=== PATIENT | female | born 1975 ===

== ENCOUNTER 2022-04-15 16:23 | Emergency (ER) | payer SELFPAY | END 2022-04-15 17:22 | disposition left against medical advice (07) | LOC: HO.ED 17:22 | PROVIDERS: Emergency Provider Emergency Medicine | DX: R07.89 Other chest pain (principal); R06.02 Shortness of breath; R05.9 Cough, unspecified ==

== ENCOUNTER 2024-08-17 11:48 | Emergency (ER) | payer MEDICAID, SELFPAY ==
--- NOTE | 2024-08-17 11:52 | ED_ITS ---
HPI - Alcohol General Chief Complaint: ETOH/Substance Use Stated Complaint: crisis Time Seen by Provider: 08/17/24 12:48 Related Data Previous Rx's ?Medication ?Instructions ?Recorded ibuprofen 600 mg tablet 600 mg PO Q6H PRN fever or pain 02/11/23 #30 tabs amoxicillin 875 mg-potassium 1 tab PO BID #10 tabs 06/17/23 clavulanate 125 mg tablet Allergies Allergy/AdvReac Type Severity Reaction Status Date / Time raines Allergy Sneezing Verified 08/17/24 11:54 mite-Dermatophagoides Allergy Sneezing Verified 08/17/24 11:54 farinae, jules [dust mite - [place]] [facility] Social History Social History (System 08/03/24 @ 15:15 by Anamika Norris) Household Members: None Housing: Homeless Do you presently have visiting nurse or other home services: No Alcohol intake: current Alcohol intake frequency: 3 or more drinks per day Alcohol type: beer, wine and hard liquor Patient Tobacco Use Status: Current everyday Tobacco user Tobacco use type: Cigarette Cigarettes Per Day: 3 Advance Directives: No Advance Directives Information Provided: Yes service: No Physical Exam ED Vital Signs: Vital Signs - 24 hr 08/17/24 11:53 08/17/24 18:00 Temperature 97.0 F Pulse Rate 100 75 Respiratory Rate 18 18 Blood Pressure 118/81 145/77 H Pulse Oximetry 96 95 Oxygen Delivery Method Room Air Room Air BMI result Body Mass Index 22.3 Course Course Course Narrative: This is a Rapid Medical Exam performed in triage by Johnna Miles PA-C. Full HPI, ROS and PE to be performed by primary ED provider. 49 yo F w/PMHx autism, ADHD, ETOH abuse, presenting to the ED c/o intoxication and requesting crisis. Denies SI/HI PE: intoxicated, ambulating with unsteady gait Plan: labs, tox, Recovery team consult Medical Decision Making Lab Data 08/17/24 14:45 08/17/24 14:45 Labs: Lab Results 08/17/24 08/17/24 Range/Units 12:59 14:45 WBC 12.9 H (4.8-10.8) X10*3/uL RBC 4.75 (4.20-5.50) X10*6/uL Hgb 14.7 (12.0-16.0) g/dl Hct 42.4 (37.0-47.0) % MCV 89.3 (80.0-98.0) fL MCH 30.9 (27.0-33.0) pg MCHC 34.7 (31.0-35.0) g/dl RDW 13.4 (11.0-16.0) % Plt Count 325 (160-400) X10*3/uL MPV 10.1 (9.4-12.3) fL Immature Gran % (Auto) 0.4 (0.0-0.4) % Neut % (Auto) 74.9 H (45-73) % Lymph % (Auto) 19.7 L (20-40) % [place] % (Auto) 3.3 (2-11) % Eos % (Auto) 1.2 (0-4) % Baso % (Auto) 0.5 (0-2) % Lymph # (Auto) 2.5 (1.2-4.9) X10*3/uL [place] # (Auto) 0.4 (0.1-1.2) X10*3/uL Eos # (Auto) 0.2 (0.0-0.4) X10*3/uL Baso # (Auto) 0.1 (0.0-0.2) X10*3/uL Abs Immat Gran (auto) 0.05 H (0.00-0.03) X10*3/uL Absolute Neuts (auto) 9.7 H (2.0-8.3) x10*3/uL Absolute Nucleated RBC 0.000 (0.0-0.012) X10*3/uL Nucleated RBC % (auto) 0.0 (0.0-0.2) /100WBC Sodium 143 (135-145) mmol/L Potassium 4.1 (3.3-5.1) mmol/L Chloride 111 H (96-108) mmol/L Carbon Dioxide 22 (22-29) mmol/L Anion Gap 14 (12-20) BUN 9 (9-16) mg/dL Creatinine 0.73 (0.5-1.4) mg/dL Estim Creat Clear Calc 77.1 Estimated GFR > 60 Random Glucose 73 (60-115) mg/dL Calcium 8.7 D (8.4-10.2) mg/dL Magnesium 2.4 (1.6-2.6) mg/dL Total Bilirubin 0.2 (0.0-1.0) mg/dL Direct Bilirubin < 0.2 (0.0-0.5) mg/dL AST 28 (5-31) U/L ALT 19 (0-31) U/L Alkaline Phosphatase 63 (39-117) U/L Total Protein 7.7 (6.5-8.0) g/dL Albumin 4.3 (3.5-5.0) g/dL Lipase 15 (8-78) U/L Urine Opiates Screen Not Detected (Not Detect) Ur Buprenorphine Scrn Not Detected (Not Detect) ng/mL Ur Oxycodone Screen Not Detected (Not Detect) ng/mL Urine Methadone Screen Not Detected (Not Detect) ng/mL Urine Fentanyl Screen Not Detected (Not Detect) Ur Barbiturates Screen Not Detected (Not Detect) Ur Phencyclidine Scrn Not Detected (Not Detect) Ur Amphetamines Screen Not Detected (Not Detect) U Benzodiazepines Scrn Not Detected (Not Detect) Urine Cocaine Screen Not Detected (Not Detect) U Marijuana (THC) Screen Not Detected (Not Detect) Ethyl Alcohol 286 mg/dL Influenza Type A (PCR) NEGATIVE (Negative) Influenza Type B (PCR) NEGATIVE (Negative) RSV RNA Qual (PCR) NEGATIVE (Negative) SARS-CoV-2 RNA (RT-PCR) NEGATIVE (Negative) Discharge Plan Discharge Clinical Impression: Alcoholic intoxication Patient Disposition: Home, Self-Care Instructions: Alcohol Intoxication (ED) Prescriptions: No Action ibuprofen 600 mg tablet 600 mg PO Q6H PRN (Reason: fever or pain) Qty: 30 0RF amoxicillin-pot clavulanate 875-125 mg tablet 1 tab PO BID Qty: 10 0RF Referrals: Marlin,Yamila, SAND SCREENER [Primary Care Provider] - ( please follow-up as per care team) Print Language: Armenian
[2024-08-17 11:53] VITALS: BP 118/81; PULSE 100; RESP 18; TEMP 36.1; O2SAT 96; BMI 22.3
[2024-08-17 13:17] LABS: Amphetamine Screen Urine Not Detected (Not Detect); Barbiturates, Urine Not Detected (Not Detect); Benzodiazepines Screen Urine Not Detected (Not Detect); Buprenorphine Scr Not Detected (Not Detect); Cannabinoid Screen Urine Not Detected (Not Detect); Cocaine Screen Urine Not Detected (Not Detect); Fentanyl, urine Not Detected (Not Detect); Methadone Screen, Urine Not Detected (Not Detect); Opiate Screen Urine Not Detected (Not Detect); Oxycodone Screen Urine Not Detected (Not Detect); Phencyclidine Screen Urine Not Detected (Not Detect)
--- NOTE | 2024-08-17 13:56 | PC.NURSE ---
Pt arrives to pod from waiting room. Crisis frame changer completed with senior principal software engineer and Security prior to Pts arrival. Upon arrival Pt reports that the preferred pronouns are he/him and demands to have his prosthetic penis returned to him. Pt advised that clearance will be received for safety reasons prior to returning the item and Pt immediately becomes belligerent. Pt uses aggressive and foul language, threatens to hurt staff, and slams both fists into glass divider on RN station. Pt is unable to be reasoned with and is unwilling to listen to staff members. Security, Clinical Coordinator Sonu of [place] arrive to unit to help diffuse the situation. Prosthetic penis inspected by this RN and Security. Item is made of soft, pliable material. No sharp areas or corners. Shobha speaks with Pt and able to deescalate Pt. Pt agreeable to correct behavior. Prosthetis penis returned to Pt. Pt proceeds to room 4 and is resting comfortably on bed. Will allow Pt to rest and when awake will continue to process Pt.
--- NOTE | 2024-08-17 14:42 | ED.ALCOHOL ---
HPI - Alcohol General Chief Complaint: ETOH/Substance Use Stated Complaint: crisis Time Seen by Provider: 08/17/24 12:48 History of Present Illness HPI narrative: patient is 49 years old preferred pronoun as he him presented today with having wanting to speak to a instructional coach and wanting to talk to care team. Has a long history of alcohol abuse. Patient denies any suicidal homicidal ideation. Related Data Previous Rx's ?Medication ?Instructions ?Recorded ibuprofen 600 mg tablet 600 mg PO Q6H PRN fever or pain 02/11/23 #30 tabs amoxicillin 875 mg-potassium 1 tab PO BID #10 tabs 06/17/23 clavulanate 125 mg tablet Allergies Allergy/AdvReac Type Severity Reaction Status Date / Time raines Allergy Sneezing Verified 08/17/24 11:54 mite-Dermatophagoides Allergy Sneezing Verified 08/17/24 11:54 jules matias [dust mite - [place]] Review of Systems Review of Systems: No fever no chills no chest pain or shortness breath Yes all other systems are reviewed and are negative [facility] Social History Social History (System 08/03/24 @ 15:15 by Anamika Norris) Household Members: None Housing: Homeless Do you presently have visiting nurse or other home services: No Alcohol intake: current Alcohol intake frequency: 3 or more drinks per day Alcohol type: beer, wine and hard liquor Patient Tobacco Use Status: Current everyday Tobacco user Tobacco use type: Cigarette Cigarettes Per Day: 3 Advance Directives: No Advance Directives Information Provided: Yes service: No Physical Exam ED Vital Signs: Vital Signs - 24 hr 08/17/24 11:53 08/17/24 18:00 Temperature 97.0 F Pulse Rate 100 75 Respiratory Rate 18 18 Blood Pressure 118/81 145/77 H Pulse Oximetry 96 95 Oxygen Delivery Method Room Air Room Air BMI result Body Mass Index 22.3 Appearance: Alert. Oriented X3. No acute distress. Eyes: Pupils equal, round and reactive to light. ENT: Pharynx normal. Neck: Normal inspection. Neck supple. No lymph nodes noted. No crepitus CVS: Normal heart rate and rhythm. Pulses normal. Normal S1 and S2 Respiratory: No respiratory distress. Breath sounds normal. No Wheezing. No rales Abdomen: Soft and nontender. No rigidity. No distention. good BS x4 Skin: Skin warm and dry. Normal skin color. Normal skin turgor. Extremities: No lower extremity edema. Neurovascular intact to all extremities. No Lacerations. No Rash Neuro: Oriented X 3. No motor deficit. No sensory deficit. Moving all extermities. No slurred speech. Cranial nerves grossly intact Medical Decision Making Medical Decision Making [facility] Narrative: Patient well-appearing not acute distress. Will get care team involved in helping patient recover. not suicidal not homicidal patient well-appearing now clinically sober at 21:00. care team to evaluate patient. Will discharge patient home afterwards. In stable condition. Differential Diagnosis Differential Diagnoses: The differential diagnosis associated with the presentation includes Polysubstance abuse Admission/Observation Consideration of admission/observation: Escalation of care including admission/observation considered Lab Data [facility] Lab Attestation statement: I reviewed the patient's lab results. 08/17/24 14:45 08/17/24 14:45 Labs: Lab Results 08/17/24 08/17/24 Range/Units 12:59 14:45 WBC 12.9 H (4.8-10.8) X10*3/uL RBC 4.75 (4.20-5.50) X10*6/uL Hgb 14.7 (12.0-16.0) g/dl Hct 42.4 (37.0-47.0) % MCV 89.3 (80.0-98.0) fL MCH 30.9 (27.0-33.0) pg MCHC 34.7 (31.0-35.0) g/dl RDW 13.4 (11.0-16.0) % Plt Count 325 (160-400) X10*3/uL MPV 10.1 (9.4-12.3) fL Immature Gran % (Auto) 0.4 (0.0-0.4) % Neut % (Auto) 74.9 H (45-73) % Lymph % (Auto) 19.7 L (20-40) % [place] % (Auto) 3.3 (2-11) % Eos % (Auto) 1.2 (0-4) % Baso % (Auto) 0.5 (0-2) % Lymph # (Auto) 2.5 (1.2-4.9) X10*3/uL [place] # (Auto) 0.4 (0.1-1.2) X10*3/uL Eos # (Auto) 0.2 (0.0-0.4) X10*3/uL Baso # (Auto) 0.1 (0.0-0.2) X10*3/uL Abs Immat Gran (auto) 0.05 H (0.00-0.03) X10*3/uL Absolute Neuts (auto) 9.7 H (2.0-8.3) x10*3/uL Absolute Nucleated RBC 0.000 (0.0-0.012) X10*3/uL Nucleated RBC % (auto) 0.0 (0.0-0.2) /100WBC Sodium 143 (135-145) mmol/L Potassium 4.1 (3.3-5.1) mmol/L Chloride 111 H (96-108) mmol/L Carbon Dioxide 22 (22-29) mmol/L Anion Gap 14 (12-20) BUN 9 (9-16) mg/dL Creatinine 0.73 (0.5-1.4) mg/dL Estim Creat Clear Calc 77.1 Estimated GFR > 60 Random Glucose 73 (60-115) mg/dL Calcium 8.7 D (8.4-10.2) mg/dL Magnesium 2.4 (1.6-2.6) mg/dL Total Bilirubin 0.2 (0.0-1.0) mg/dL Direct Bilirubin < 0.2 (0.0-0.5) mg/dL AST 28 (5-31) U/L ALT 19 (0-31) U/L Alkaline Phosphatase 63 (39-117) U/L Total Protein 7.7 (6.5-8.0) g/dL Albumin 4.3 (3.5-5.0) g/dL Lipase 15 (8-78) U/L Urine Opiates Screen Not Detected (Not Detect) Ur Buprenorphine Scrn Not Detected (Not Detect) ng/mL Ur Oxycodone Screen Not Detected (Not Detect) ng/mL Urine Methadone Screen Not Detected (Not Detect) ng/mL Urine Fentanyl Screen Not Detected (Not Detect) Ur Barbiturates Screen Not Detected (Not Detect) Ur Phencyclidine Scrn Not Detected (Not Detect) Ur Amphetamines Screen Not Detected (Not Detect) U Benzodiazepines Scrn Not Detected (Not Detect) Urine Cocaine Screen Not Detected (Not Detect) U Marijuana (THC) Screen Not Detected (Not Detect) Ethyl Alcohol 286 mg/dL Influenza Type A (PCR) NEGATIVE (Negative) Influenza Type B (PCR) NEGATIVE (Negative) RSV RNA Qual (PCR) NEGATIVE (Negative) SARS-CoV-2 RNA (RT-PCR) NEGATIVE (Negative) Chronic Conditions alcohol abuse Social Determinants Patient?s care significantly limited by Social Determinants of Health including: Alcoholism and drug addiction in family and Problems related to primary support group Discharge Plan Discharge Clinical Impression: Alcoholic intoxication Patient Disposition: Home, Self-Care Instructions: Alcohol Intoxication (ED) Prescriptions: No Action ibuprofen 600 mg tablet 600 mg PO Q6H PRN (Reason: fever or pain) Qty: 30 0RF amoxicillin-pot clavulanate 875-125 mg tablet 1 tab PO BID Qty: 10 0RF Referrals: Yamila Isaac, COMBINATION WELDER [Primary Care Provider] - ( please follow-up as per care team) Print Language: Croatian
[2024-08-17 14:51] LABS: MANUAL DIFF FLAG NO
[2024-08-17 14:56] LABS: Basophils Absolute Auto 0.1 X10*3/uL (0.0-0.2); Basophils Percent Auto 0.5 % (0-2); Eosinophils Absolute Auto 0.2 X10*3/uL (0.0-0.4); Eosinophils Percent Auto 1.2 % (0-4); Hematocrit 42.4 % (37.0-47.0); Hemoglobin 14.7 g/dl (12.0-16.0); Imm Gran Abs Auto 0.05 X10*3/uL (0.00-0.03); Imm Gran Pct Auto 0.4 % (0.0-0.4); Lymphocytes Absolute Auto 2.5 X10*3/uL (1.2-4.9); Lymphocytes Percent Auto 19.7 % (20-40); Mean Corpuscular HGB Conc 34.7 g/dl (31.0-35.0); Mean Corpuscular Hemoglobin 30.9 pg (27.0-33.0); Mean Corpuscular Volume 89.3 fL (80.0-98.0); Mean Platelet Volume 10.1 fL (9.4-12.3); Monocytes Absolute Auto 0.4 X10*3/uL (0.1-1.2); Monocytes Percent Auto 3.3 % (2-11); Neutrophils Absolute Auto 9.7 x10*3/uL (2.0-8.3); Neutrophils Percent Auto 74.9 % (45-73); Platelet Count 325 X10*3/uL (160-400); Red Blood Count 4.75 X10*6/uL (4.20-5.50); Red Cell Distribution Width 13.4 % (11.0-16.0); White Blood Count 12.9 X10*3/uL (4.8-10.8)
[2024-08-17 15:21] LABS: Alanine Aminotransferase 19 U/L (0-31); Albumin Level 4.3 g/dL (3.5-5.0); Alkaline Phosphatase 63 U/L (39-117); Anion Gap 14 (12-20); Aspartate Amino Transferase 28 U/L (5-31); Bilirubin Direct < 0.2 mg/dL (0.0-0.5); Bilirubin Total 0.2 mg/dL (0.0-1.0); Blood Urea Nitrogen 9 mg/dL (9-16); Calcium 8.7 mg/dL (8.4-10.2); Carbon Dioxide 22 mmol/L (22-29); Chloride 111 mmol/L (96-108); Creatinine Clr Calc Pharmacy 77.1; Estimated Glomerular Filt Rate > 60; Ethanol 286 mg/dL; Glucose Random 73 mg/dL (60-115); Lipase 15 U/L (8-78); Magnesium 2.4 mg/dL (1.6-2.6); Potassium 4.1 mmol/L (3.3-5.1); Sodium 143 mmol/L (135-145); Total Protein 7.7 g/dL (6.5-8.0)
[2024-08-17 15:38] LABS: Influenza A PCR NEGATIVE (Negative); Influenza B PCR NEGATIVE (Negative); Resp Syncy Virus RNA Qual PCR NEGATIVE (Negative); SARS COV2 PCR INHOUSE NEGATIVE (Negative)
--- NOTE | 2024-08-17 17:30 | PC.NURSE ---
Attempted to talk to pt, pt. refused to talk and answer questions asked. Informed to leave them alone.
[2024-08-17 18:00] VITALS: BP 145/77; PULSE 75; RESP 18; O2SAT 95
--- OUTSIDE RECORDS SUMMARY | 2024-08-17 18:15 | XMS_ITS | Clinical Summary ---
Author Organization [employer] Address [address] [place] [address] Care Team Providers Care Aircraft Maintenance Supervisor Name Role Phone [place], Yamila SYRUP FILTERER Primary Care Provider [phone] Encounters Date Type Department Care Team Description 07/21/2024 Population Health Risk Score [facility] Care [facility] (C3) Department [address] [facility] [address] [place] [address] Provider, Population Health Generic 07/18/2024 Telephone [facility] MED & PEDS [address] [place], [place] [id number] Yamila Isaac FNP Care Coordination (ICP Care Plan ) from Last 3 Months Social History Tobacco Use Types Packs/Day Years Used Date Smoking Tobacco: Never Assessed Comments Unknown Sex and Gender Information Value Date Recorded Sex Assigned at Not on file Legal Sex Female 9:57 AM EST Gender Identity Not on file Sexual Orientation Not on file Plan of Treatment Upcoming Encounters Date Type Department Care Team (Late st Contact Info) Description 10/06/2024 10:30 AM EDT Office Visit [facility] MEDICINE [address] [place] [address] MarlinYamila [facility] [address] [place] [address] Health Maintenance Due Date Last Done Comments CT Colonography 1975 Colonoscopy 1975 Colorectal Cancer Screening 1975 Depression Screening 1975 FIT DNA/Cologuard 1975 FIT 1975 FOBT 1975 HIV Screening 1975 SDOH Screening 1975 Sigmoidoscopy 1975 Alcohol/Substance Use Screening 1987 Tobacco Screening 1987 Family Planning (PISQ) 1990 Hepatitis C Screening 1993 DTaP/Tdap/Td Vaccines (1 - Tdap) 1994 Hepatitis B Vaccines (1 of 3 - 19+ 3-dose series) 1994 Pap Smear 1996 Cervical Cancer Screening 2005 HPV/Cotest 2005 Mammogram 2015 COVID-19 Vaccine (1 - 2023-2 5 season) 2024 Influenza Vaccine (#1) 2024 06/16/2023 Zoster Vaccines (1 of 2) 2025 RSV Patients and Pa tients Aged 60 years or older (1 - 1-dose 75+ series) 2050 HIB Vaccines Aged Out No longer eligi ble based on patient's age to complete this topic HPV Vaccines Aged Out No longer eligi ble based on patient's age to complete this topic Hepatitis A Vaccines Aged Out No long er eligible based on patient's age to complete this topic IPV Vaccines Aged Out No longer eligi ble based on patient's age to complete this topic Meningococcal Vaccine Aged Out No haider kar eligible based on patient's age to complete this topic Pneumococcal Vaccine: Pediat rics (0 to 5 Years) and At-Risk Patients (6 to 49) Years) Aged Out No longer elig ible based on patient's age to complete this topic RSV under 20 months Aged Out No longe r eligible based on patient's age to complete this topic Rotavirus Vaccines Aged Out No longer eligible based on patient's age to complete this topic Insurance [facility] C3 Care Teams Aircraft Maintenance Supervisor Relationship Specialty Start Date End Date Yamila Isaac FNP [address] [place] [id number] PCP - General Family Medicine 07/18/24 Ilan Jefferson Load BuilderTax Appraiser 07/25/24
[2024-08-17 20:00] VITALS: BP 135/77; PULSE 80; RESP 18; TEMP 36.7; O2SAT 97
--- NOTE | 2024-08-17 21:39 | MHC.CARE ---
Per ED provider Dr. Lowe, Pt does not require a full LOC evaluation and is a consult. Pt was dropped off by their assistant men's soccer coach due to alcohol relapse after 18 months of sobriety. Pt reports that they had been living in a stressful situation with a peer which impacted their relapse. Pt is often dismissive, sarcastic and condescending. Pt reports that they were agreeable to coming to the ED with the encouragement of their assistant men's soccer coach with the goal of getting into a program I guess. However, Pt reports that they are not interested at this time as they had a bad experience last time while at [facility]; I don't count today as a relapse. It was a lapse and I am 18 months sober. Pt reports they have a clinician through [facility] and recently had an intake with a psychiatrist. No SI/HI/AVH was reported and no signs of psychosis are observed. Pt was provided a resource booklet and verbal information about detox if they should be interested in the future. Pt verbalized understanding and had no further questions or concerns.
[2024-08-17 21:42] VITALS: BP 135/77; PULSE 80; RESP 18; TEMP 36.7; O2SAT 97
== END 2024-08-17 21:43 | disposition home or self-care (01) ==
PROVIDERS: Physician Assistant; Emergency Provider Emergency Medicine Emergency Medical Services; PCP Registered Nurse
DX: F10.129 Alcohol abuse with intoxication, unspecified (principal); Y90.8 Blood alcohol level of 240 mg/100 ml or more; F17.210 Nicotine dependence, cigarettes, uncomplicated; Z51.81 Encounter for therapeutic drug level monitoring; Z79.899 Other long term (current) drug therapy; Z03.818 Encounter for observation for suspected exposure to other biological agents ruled out
CPT/HCPCS: 0241U; 80048; 80076; 80307; 83690; 83735; 85025; 99284

== ENCOUNTER 2024-10-09 09:36 | Outpatient (REF) | payer MEDICAID, SELFPAY ==
[2024-10-09 11:31] LABS: MANUAL DIFF FLAG NO
[2024-10-09 11:40] LABS: Basophils Percent Auto 0.5 % (0-2); Eosinophils Absolute Auto 0.1 X10*3/uL (0.0-0.4); Eosinophils Percent Auto 1.3 % (0-4); Hematocrit 44.2 % (37.0-47.0); Hemoglobin 15.4 g/dl (12.0-16.0); Imm Gran Abs Auto 0.03 X10*3/uL (0.00-0.03); Imm Gran Pct Auto 0.4 % (0.0-0.4); Lymphocytes Absolute Auto 0.8 X10*3/uL (1.2-4.9); Lymphocytes Percent Auto 10.2 % (20-40); Mean Corpuscular HGB Conc 34.8 g/dl (31.0-35.0); Mean Corpuscular Hemoglobin 31.5 pg (27.0-33.0); Mean Corpuscular Volume 90.4 fL (80.0-98.0); Mean Platelet Volume 11.3 fL (9.4-12.3); Monocytes Absolute Auto 0.5 X10*3/uL (0.1-1.2); Monocytes Percent Auto 6.6 % (2-11); Neutrophils Absolute Auto 6.1 x10*3/uL (2.0-8.3); Platelet Count 285 X10*3/uL (160-400); Red Blood Count 4.89 X10*6/uL (4.20-5.50); Red Cell Distribution Width 13.6 % (11.0-16.0); White Blood Count 7.5 X10*3/uL (4.8-10.8)
[2024-10-09 11:52] LABS: Estimated Average Glucose 100 mg/dL; Hemoglobin A1c % 5.1 % (<6.0); Total Hemoglobin (HGBA1C) 4011.3204 umol/L
[2024-10-09 12:13] LABS: Alanine Aminotransferase 17 U/L (0-31); Albumin Level 4.3 g/dL (3.5-5.0); Alkaline Phosphatase 68 U/L (39-117); Anion Gap 11 (12-20); Aspartate Amino Transferase 25 U/L (5-31); Bilirubin Total 0.5 mg/dL (0.0-1.0); Blood Urea Nitrogen 10 mg/dL (9-16); Calcium 9.1 mg/dL (8.4-10.2); Carbon Dioxide 25 mmol/L (22-29); Chloride 107 mmol/L (96-108); Cholesterol 214 mg/dL (<200); Estimated Glomerular Filt Rate > 60; Glucose Random 91 mg/dL (60-115); HDL Cholesterol 24 mg/dL (>40); LDL Cholesterol Calculated 156 mg/dL (<100); Potassium 3.8 mmol/L (3.3-5.1); Sodium 139 mmol/L (135-145); TSH reflex Free T4 2.14 uIU/mL (0.32-4.0); Total Protein 7.3 g/dL (6.5-8.0); Triglycerides 173 mg/dL (<150)
[2024-10-09 12:23] LABS: Syphilis Screen Nonreactive (Nonreactive)
[2024-10-09 12:24] LABS: Folate 5.4 ng/mL (> or = 4.0); Vitamin B12 293 pg/mL (200-900)
[2024-10-09 12:30] LABS: HBS Num1 1.55 mIU/mL (0-7.99); HBc Num1 0.09 S/CO (0.00-0.79); HBsAGNum1 0.37 S/CO (0.00-0.99); HIV AB/AG Nonreactive (Nonreactive); HIV Num 1 0.05 S/CO (0.00-0.99); Hepatitis A Antibody IgM 0.28 Index (0-0.79); Hepatitis B Core Antibody Nonreactive (Nonreactive); Hepatitis B Surface Antigen Negative (Negative); ~Hepatitis A Antibody IgM Nonreactive (Nonreactive); ~Hepatitis B Surface Antibody NONREACTIVE (Nonreactive); ~Hepatitis C Antibody Nonreactive (Nonreactive)
[2024-10-13 05:34] LABS: Hepatitis A Antibody IgG REACTIVE (Nonreactive); ~Hepatitis A Antibody IgG 7.49 S/CO (0.00-0.99)
== END 2024-10-09 09:37 | disposition home or self-care (01) ==
LOC: HO.HHCL 09:36
PROVIDERS: Visit Provider Registered Nurse
DX: G25.2 Other specified forms of tremor (principal); Z11.3 Encounter for screening for infections with a predominantly sexual mode of transmission; Z87.898 Personal history of other specified conditions; Z83.3 Family history of diabetes mellitus
CPT/HCPCS: 36415; 80053; 80061; 82607; 82746; 83036; 84443; 85025; 86704; 86706; 86708; 86709; 86780; 86803; 87340; 87389

== ENCOUNTER 2024-10-19 07:25 | Outpatient (REF) | payer MEDICAID, SELFPAY | END 2024-10-19 07:26 | disposition home or self-care (01) | LOC: HO.MAMMO 07:25 | PROVIDERS: PCP Registered Nurse; Visit Provider Registered Nurse | DX: Z12.31 Encounter for screening mammogram for malignant neoplasm of breast (principal) | CPT/HCPCS: 77063; 77067 ==

== ENCOUNTER → 2024-10-19 08:00 | Outpatient (BNV) | payer MEDICAID, SELFPAY | PROVIDERS: PCP Registered Nurse; Visit Provider Internal Medicine | DX: Z12.31 Encounter for screening mammogram for malignant neoplasm of breast (principal) | CPT/HCPCS: 77063; 77067 ==

== ENCOUNTER 2024-12-17 14:16 | Emergency (ER) | payer MEDICAID, SELFPAY ==
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
[2024-12-17 14:25] VITALS: BP 172/72; PULSE 125; RESP 16; TEMP 37.4; O2SAT 97; BMI 22.5
[2024-12-17 15:00] LABS: MANUAL DIFF FLAG NO
[2024-12-17 15:01] LABS: Hematocrit 42.9 % (37.0-47.0); Hemoglobin 14.2 g/dl (12.0-16.0); Imm Gran Abs Auto 0.06 X10*3/uL (0.00-0.03); Imm Gran Pct Auto 0.4 % (0.0-0.4); Lymphocytes Absolute Auto 1.9 X10*3/uL (1.2-4.9); Mean Corpuscular HGB Conc 33.1 g/dl (31.0-35.0); Mean Corpuscular Hemoglobin 30.5 pg (27.0-33.0); Mean Corpuscular Volume 92.1 fL (80.0-98.0); NRBC Abs Auto 0.000 X10*3/uL (0.0-0.012); NRBC Pct Auto 0.0 /100WBC (0.0-0.2); Platelet Count 358 X10*3/uL (160-400); Red Blood Count 4.66 X10*6/uL (4.20-5.50); White Blood Count 14.2 X10*3/uL (4.8-10.8)
--- NOTE | 2024-12-17 15:02 | PC.NURSE ---
cigarette examiner talked with TOMAS Salcido, who stated the patient is not going to be receiving a SANE kit, this RN then asked if we were doing a psych eval, and if she needed to be a complete crisis telephone exchange operator. At this time, the PA felt as though it would be worse for the patient to be changed over. The hopes would be that she can be seen and DC shortly after. This Rn did bring up if she ended up staying and we did a telephone exchange operator later after she had already been here if it would make things worse. At this time PA still wanting to not change pt over at this time, security aware.
[2024-12-17 15:03] LABS: Appearance Urine Clear; Glucose Urine UA Negative (Negative); PH 6.5 (5.0-9.0); Specific Gravity - Urine 1.015 (1.005-1.025); UMIC TRIGGER UA YES
[2024-12-17 15:12] LABS: Cannabinoid Screen Urine POSITIVE (Not Detect)
[2024-12-17 15:17] LABS: Acetaminophen LAB < 3 mcg/mL (<30); Salicylate < 5.0 mg/dL (15-30)
[2024-12-17 15:22] LABS: Alanine Aminotransferase 52 U/L (0-31); Albumin Level 3.9 g/dL (3.5-5.0); Alkaline Phosphatase 55 U/L (39-117); Anion Gap 12 (12-20); Aspartate Amino Transferase 41 U/L (5-31); Blood Urea Nitrogen 8 mg/dL (9-16); Calcium 9.2 mg/dL (8.4-10.2); Carbon Dioxide 31 mmol/L (22-29); Chloride 98 mmol/L (96-108); Creatinine Clr Calc Pharmacy 56.6; Estimated Glomerular Filt Rate > 60; Potassium 4.6 mmol/L (3.3-5.1); Sodium 136 mmol/L (135-145); Total Protein 7.2 g/dL (6.5-8.0)
[2024-12-17 15:31] LABS: COVID-19 Test Negative (Negative); IDNOW Serial# 6674DD1D
[2024-12-17 16:00] VITALS: BP 132/74; PULSE 60; RESP 16; TEMP 36.9; O2SAT 99
[2024-12-17 18:00] VITALS: BP 130/70; PULSE 88; RESP 16; TEMP 36.9; O2SAT 99
--- NOTE | 2024-12-17 19:30 | PC.NURSE ---
Assumed care of patient, Patient argumentative, aggressive and rude to PA who was trying to complete exam. Discharge papers given to patient however patient threw them on the floor. stating I am just going to genesis all of you. security escorted patient out of ED
[2024-12-17 22:02] VITALS: BP 130/70; PULSE 88; RESP 16; TEMP 36.9; O2SAT 99
== END 2024-12-17 19:35 | disposition home or self-care (01) ==
PROVIDERS: Physician Assistant Medical; Emergency Provider Emergency Medicine Emergency Medical Services
DX: T76.21XA Adult sexual abuse, suspected, initial encounter (principal); R51.9 Headache, unspecified; F17.210 Nicotine dependence, cigarettes, uncomplicated; Z51.81 Encounter for therapeutic drug level monitoring; Z79.899 Other long term (current) drug therapy; Z11.52 Encounter for screening for COVID-19
CPT/HCPCS: 80053; 80143; 80179; 80307; 81001; 81003; 84702; 85025; 87635; 99284

== ENCOUNTER 2024-12-17 21:45 | Emergency (ER) | payer MEDICAID, SELFPAY ==
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
[2024-12-17 22:02] VITALS: BP 131/60; PULSE 96; RESP 20; TEMP 37.2; O2SAT 98; BMI 21.8
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
[2024-12-18 08:01] VITALS: BP 103/41; PULSE 62; RESP 18; O2SAT 94
--- NOTE | 2024-12-18 08:02 | MHC.EDTECH ---
PT WANTS TO BE CALLED MEL! PT IS VERY NICE AND SWEET THEY JUST PREFER TO BE CALLED MEL!
[2024-12-18 08:05] LABS: MANUAL DIFF FLAG NO
[2024-12-18 08:06] LABS: Hematocrit 41.0 % (37.0-47.0); Hemoglobin 13.2 g/dl (12.0-16.0); Imm Gran Abs Auto 0.05 X10*3/uL (0.00-0.03); Imm Gran Pct Auto 0.4 % (0.0-0.4); Lymphocytes Absolute Auto 2.0 X10*3/uL (1.2-4.9); Mean Corpuscular HGB Conc 32.2 g/dl (31.0-35.0); Mean Corpuscular Hemoglobin 30.2 pg (27.0-33.0); Mean Corpuscular Volume 93.8 fL (80.0-98.0); NRBC Abs Auto 0.000 X10*3/uL (0.0-0.012); NRBC Pct Auto 0.0 /100WBC (0.0-0.2); Platelet Count 341 X10*3/uL (160-400); Red Blood Count 4.37 X10*6/uL (4.20-5.50); White Blood Count 11.4 X10*3/uL (4.8-10.8)
[2024-12-18 08:24] LABS: Alanine Aminotransferase 34 U/L (0-31); Albumin Level 3.6 g/dL (3.5-5.0); Alkaline Phosphatase 47 U/L (39-117); Anion Gap 11 (12-20); Aspartate Amino Transferase 25 U/L (5-31); Blood Urea Nitrogen 8 mg/dL (9-16); Calcium 8.8 mg/dL (8.4-10.2); Carbon Dioxide 31 mmol/L (22-29); Chloride 102 mmol/L (96-108); Creatinine Clr Calc Pharmacy 64.0; Estimated Glomerular Filt Rate > 60; Potassium 4.5 mmol/L (3.3-5.1); Sodium 139 mmol/L (135-145); Total Protein 6.8 g/dL (6.5-8.0)
[2024-12-18 10:01] LABS: Cannabinoid Screen Urine POSITIVE (Not Detect)
[2024-12-18 10:39] VITALS: BP 116/49; PULSE 79; RESP 16; O2SAT 100
--- NOTE | 2024-12-18 10:55 | MHC.EDTECH ---
pt has a commode at bedside!
--- NOTE | 2024-12-18 11:10 | PC.NURSE ---
call to [facility] for report, no answer, will call back
[2024-12-18 11:25] VITALS: BP 116/49; PULSE 79; RESP 16; TEMP 37.2; O2SAT 100
== END 2024-12-18 11:30 | disposition short-term general hospital (02) ==
PROVIDERS: Emergency Provider Emergency Medicine; PCP Registered Nurse
DX: H50.631 Inferior rectus muscle entrapment, right eye (principal); H91.91 Unspecified hearing loss, right ear; R51.9 Headache, unspecified; S13.4XXA Sprain of ligaments of cervical spine, initial encounter; S02.92XA Unspecified fracture of facial bones, initial encounter for closed fracture; F90.9 Attention-deficit hyperactivity disorder, unspecified type; F41.1 Generalized anxiety disorder; F10.10 Alcohol abuse, uncomplicated; Y04.8XXA Assault by other bodily force, initial encounter; Y99.8 Other external cause status; Y93.89 Activity, other specified; Y92.89 Other specified places as the place of occurrence of the external cause; Z72.0 Tobacco use
CPT/HCPCS: 36415; 70450; 70486; 72125; 80053; 80307; 85025; 99285; 99291

== ENCOUNTER → 2024-12-18 07:17 | Outpatient (BNV) | payer MEDICAID, SELFPAY | PROVIDERS: Emergency Provider Emergency Medicine; PCP Registered Nurse; Visit Provider Radiology Diagnostic Radiology | DX: S10.0XXA Contusion of throat, initial encounter (principal); S02.81XA Fracture of other specified skull and facial bones, right side, initial encounter for closed fracture | CPT/HCPCS: 70450; 70486; 72125 ==

== ENCOUNTER 2024-12-24 07:39 | Emergency (ER) | payer MEDICAID, SELFPAY ==
[2024-12-24 07:48] VITALS: BP 142/70; PULSE 96; O2SAT 17
[2024-12-24 07:51] VITALS: BP 138/60; PULSE 84; RESP 16; TEMP 37; O2SAT 96; BMI 24.9
[2024-12-24 12:47] LABS: Glucose, Whole Blood 90 mg/dL (60-115)
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
[2024-12-24 12:55] VITALS: BP 111/56; PULSE 68; RESP 18; TEMP 36.5; O2SAT 97
[2024-12-24 14:21] VITALS: BP 111/56; PULSE 68; RESP 18; TEMP 36.5; O2SAT 97
== END 2024-12-24 14:27 | disposition home or self-care (01) ==
PROVIDERS: Emergency Provider Emergency Medicine
DX: S42.002A Fracture of unspecified part of left clavicle, initial encounter for closed fracture (principal); X58.XXXA Exposure to other specified factors, initial encounter; Y93.9 Activity, unspecified; Y92.9 Unspecified place or not applicable; Y99.9 Unspecified external cause status; H53.2 Diplopia; Z59.00 Homelessness unspecified; M25.512 Pain in left shoulder
CPT/HCPCS: 82947; 99282